=== PATIENT | female | born 1940 | race Hispanic/Latino ===

== ENCOUNTER 2021-09-01 16:37 | Emergency (ER) | payer MEDICARE, OTHER ==
[~2021-09-01] VITALS: Ht 152.4 cm; Wt 70.3 kg
[~2021-09-01 16:37] MED LIST: LEVO50TA6 PO; LISI10TA24 PO
[2021-09-01] MEDS ORDERED: MECLIZINE HCL 25 MG TABLET ONE (17:19)
[2021-09-01 17:27] LABS: APPEARANCE,URINE Cloudy (CLEAR); BILIRUBIN,URINE Negative (NEGATIVE); COLOR,URINE Dark Yellow (YELLOW); GLUCOSE, URINE (UA) Negative (NEGATIVE); KETONES,URINE Trace mg/dL (NEGATIVE); LEUKOCYTE ESTERASE ,URINE Small (NEGATIVE); NITRATE,URINE Negative (NEGATIVE); OCCULT BLOOD,URINE Negative (NEGATIVE); PROTEIN,URINE Trace mg/dL (NEGATIVE)
[2021-09-01 17:28] LABS: BASOPHILS % (AUTO) 0.4 % (0.0-5.0); EOSINOPHILS % (AUTO) 0.4 % (0.0-8.0); HEMATOCRIT 40.5 % (36-48); LYMPHOCYTES % (AUTO) 31.4 % (21.0-51.0); MEAN CORPUSCULAR HEMOGLOBIN 30.6 pg (27.0-33.0); MEAN CORPUSCULAR HGB CONC 32.8 g/dL (32.0-36.0); MEAN CORPUSCULAR VOLUME 93.1 fL (79-99); MONOCYTES % (AUTO) 11.8 % (3.0-13.0); NEUTROPHILS % (AUTO) 55.6 % (40.0-77.0); PLATELET COUNT (AUTO) 143 K/uL (130-400); RED BLOOD CELL COUNT(AUTO) 4.35 MIL/uL (4.00-5.50); RED CELL DISTRIBUTION WIDTH 12.6 % (11.0-15.5); WHITE BLOOD COUNT (AUTO) 2.6 K/uL (4.8-10.8)
[2021-09-01 17:31] VITALS: BP 143/76
[2021-09-01 17:41] LABS: BACTERIA,URINE Few /HPF (None Seen); SQUAMOUS EPITHELIAL CELL,UR Rare /HPF (0-2)
[2021-09-01 17:42] LABS: MUCUS,URINE Few LPF (None Seen)
[2021-09-01 17:46] LABS: CARBON DIOXIDE 27 mmol/L (21-32); CHLORIDE 106 mmol/L (101-111); GLOMERULAR FILTR. RATE CALC 57 mL/min (>60); GLUCOSE,RANDOM 90 mg/dL (70-105); POTASSIUM 3.6 mmol/L (3.5-5.1); SODIUM SERUM 142 mmol/L (136-145); UREA NITROGEN, BLOOD 16 mg/dL (7-18)
[2021-09-01 17:51] LABS: ALANINE AMINOTRANSFERASE 21 U/L (12-78); ALBUMIN 3.8 g/dL (3.5-5.0); ASPARTATE AMINOTRANSFERASE 18 U/L (10-37); BILIRUBIN,TOTAL 0.4 mg/dL (0.2-1.0); TOTAL PROTEIN, SERUM 6.9 g/dL (6.0-8.3)
[2021-09-01 17:52] LABS: CRP QUANTITATIVE < 2.00 mg/L (0.00-9.0)
[2021-09-01 18:03] LABS: B-TYPE NATRIURETIC PEPTIDE 66 pg/mL (0-100)
[2021-09-01] MEDS ORDERED: MECLIZINE HCL 25 MG TABLET PO ONE (18:06)
[2021-09-01 18:09] LABS: BAND NEUTROPHILS % (MANUAL) 2 % (0-2); LYMPHOCYTES % (MANUAL) 20 % (22-44); MAN.DIFF COMMENT-IMPRESSION MANUAL DIFFERENTIAL; MONOCYTES % (MANUAL) 10 % (2-9); REACTIVE LYMPHOCYTES 3 % (0-0); SEGMENTED NEUTROPHILS % 65 % (40-70)
[2021-09-01 18:10] LABS: PLATELET MORPHOLOGY COMMENT ADEQUATE
[2021-09-01] MEDS ORDERED: MECL-226 PO (19:19)
== END 2021-09-01 19:27 | disposition home or self-care (01) ==
LOC: EDH 16:37
DX: B34.9 Viral infection, unspecified (principal); R42 Dizziness and giddiness; D72.819 Decreased white blood cell count, unspecified; Z20.822 Contact with and (suspected) exposure to COVID-19; Z79.899 Other long term (current) drug therapy
CPT/HCPCS: 36415; 70450; 71045; 74176; 80053; 81001; 83880; 84484; 85025; 86140; 87635; 87804 ×2; 87880; 93005; 99285; C9803

== ENCOUNTER 2022-02-13 12:28 | Emergency (ER) | payer OTHER ==
[~2022-02-13] VITALS: Ht 165.1 cm; Wt 74.4 kg
[~2022-02-13 12:28] MED LIST changes: +MECL-226 PO
[2022-02-13 12:46] LABS: BASOPHILS % (AUTO) 0.3 % (0.0-5.0); EOSINOPHILS % (AUTO) 0.3 % (0.0-8.0); LYMPHOCYTES % (AUTO) 16.2 % (21.0-51.0); MEAN CORPUSCULAR HEMOGLOBIN 29.7 pg (27.0-33.0); MEAN CORPUSCULAR HGB CONC 32.6 g/dL (32.0-36.0); MEAN CORPUSCULAR VOLUME 91.3 fL (79-99); MONOCYTES % (AUTO) 2.4 % (3.0-13.0); NEUTROPHILS % (AUTO) 80.6 % (40.0-77.0); PLATELET COUNT (AUTO) 181 K/uL (130-400); RED BLOOD CELL COUNT(AUTO) 4.27 MIL/uL (4.00-5.50); RED CELL DISTRIBUTION WIDTH 12.8 % (11.0-15.5); WHITE BLOOD COUNT (AUTO) 5.7 K/uL (4.8-10.8)
[2022-02-13] MEDS ORDERED: PANTOPRAZOLE 40 MG/VIAL ONE (12:57)
[2022-02-13] MEDS ORDERED: PANTOPRAZOLE 40 MG/VIAL IVP SCH (13:00)
[2022-02-13 13:01] LABS: CREATININE 0.9 mg/dL (0.5-1.5); POTASSIUM 4.6 mmol/L (3.5-5.1)
[2022-02-13 13:06] LABS: ALBUMIN 4.1 g/dL (3.5-5.0); BILIRUBIN,TOTAL 0.8 mg/dL (0.2-1.0); TOTAL PROTEIN, SERUM 7.1 g/dL (6.0-8.3)
[2022-02-13] MEDS ORDERED: LIDOCAINE HCL 2% VISCOUS 15 ML UDCUP ONE (13:51)
[2022-02-13] MEDS ORDERED: MAG/ALUM/SIMETH 30 ML UDCUP ONE (13:51)
[2022-02-13] MEDS ORDERED: LIDOCAINE HCL 2% VISCOUS 15 ML UDCUP PO SCH (14:00)
[2022-02-13] MEDS ORDERED: MAG/ALUM/SIMETH 30 ML UDCUP PO ONE (14:00)
[2022-02-13] MEDS ORDERED: DICYCLOMINE HCL 10 MG/5 ML ML PO SCH (14:00)
[2022-02-13] MEDS ORDERED: FAMO20TA8 PO (14:05)
[2022-02-13 14:40] VITALS: BP 147/82
== END 2022-02-13 14:30 | disposition home or self-care (01) ==
LOC: EDH 12:28
DX: K29.70 Gastritis, unspecified, without bleeding (principal); Z79.899 Other long term (current) drug therapy
CPT/HCPCS: 36415; 71045; 80053; 84484; 85025; 93005; 96374; 99285; C9113

== ENCOUNTER 2023-05-15 11:09 | Observation (INO) | payer OTHER ==
[~2023-05-15] VITALS: Ht 157.5 cm; Wt 79.0 kg
[~2023-05-15 11:09] MED LIST changes: +FAMO20TA8 PO
[2023-05-15 11:37] LABS: EOSINOPHILS % (AUTO) 0.6 % (0.0-8.0); HEMATOCRIT 40.1 % (36-48); LYMPHOCYTES % (AUTO) 24.6 % (21.0-51.0); MEAN CORPUSCULAR HEMOGLOBIN 29.7 pg (27.0-33.0); MEAN CORPUSCULAR HGB CONC 32.4 g/dL (32.0-36.0); MEAN CORPUSCULAR VOLUME 91.6 fL (79-99); MONOCYTES % (AUTO) 7.2 % (3.0-13.0); NEUTROPHILS % (AUTO) 67.6 % (40.0-77.0); PLATELET COUNT (AUTO) 178 K/uL (130-400); RED BLOOD CELL COUNT(AUTO) 4.38 MIL/uL (4.00-5.50); RED CELL DISTRIBUTION WIDTH 12.9 % (11.0-15.5)
[2023-05-15 11:59] LABS: BILIRUBIN,DIRECT 0.2 mg/dL (0.0-0.3); CREATININE 0.8 mg/dL (0.5-1.5); POTASSIUM 4.1 mmol/L (3.5-5.1); TOTAL PROTEIN, SERUM 7.2 g/dL (6.0-8.3)
[2023-05-15] MEDS ORDERED: LOSA1TAB37 PO (12:21)
[2023-05-15] MEDS ORDERED: GABA-529 PO (12:21)
[2023-05-15] MEDS ORDERED: DONE5TAB5 PO (12:21)
[2023-05-15] MEDS ORDERED: NAPR-1023 PO (12:21)
[2023-05-15] MEDS ORDERED: DICL25TA11 PO (12:21)
[2023-05-15] MEDS ORDERED: PRED20TA3 PO (12:21)
[2023-05-15] MEDS ORDERED: ACET-2079 PO (12:21)
[2023-05-15] MEDS ORDERED: NITROGLYCERIN 0.4 MG SL TAB SL PRN (12:30)
[2023-05-15] MEDS ORDERED: LACTULOSE 20 GM/30 ML UDCUP PO PRN (12:30)
[2023-05-15] MEDS ORDERED: DIPHENHYDRAMINE HCL 25 MG CAPSULE PO PRN (12:30)
[2023-05-15] MEDS ORDERED: ONDANSETRON 4MG INJ IVP PRN (12:30)
[2023-05-15] MEDS ORDERED: GUAIFENESIN-DM 200/20 MG 10 ML PO PRN (12:30)
[2023-05-15] MEDS ORDERED: ZOLPIDEM TARTRATE 5 MG TAB PO PRN (12:30)
[2023-05-15] MEDS: ACETAMINOPHEN 325 MG TAB PO PRN ×2 (14:01→18:19)
[2023-05-15] MEDS ORDERED: ENOXAPARIN SODIUM 80 MG/0.8 ML SQ ONE (21:00)
[2023-05-16] MEDS ORDERED: REGADENOSON 0.4 MG/5 ML PF SYG IVP SCH (07:00)
[2023-05-16] MEDS: CLOPIDOGREL 75MG TAB PO SCH (09:14)
[2023-05-16] MEDS: ASPIRIN 325MG TAB PO SCH (09:15)
[2023-05-16 10:10] VITALS: BP 151/109
[2023-05-16 11:30] VITALS: BP 164/80
[2023-05-16 12:04] LABS: HEMATOCRIT 38.1 % (36-48); MEAN CORPUSCULAR HEMOGLOBIN 30.1 pg (27.0-33.0); MEAN CORPUSCULAR HGB CONC 32.5 g/dL (32.0-36.0); MEAN CORPUSCULAR VOLUME 92.5 fL (79-99); RED BLOOD CELL COUNT(AUTO) 4.12 MIL/uL (4.00-5.50); RED CELL DISTRIBUTION WIDTH 12.8 % (11.0-15.5); WHITE BLOOD COUNT (AUTO) 3.6 K/uL (4.8-10.8)
[2023-05-16 12:18] LABS: CREATININE 0.8 mg/dL (0.5-1.5); POTASSIUM 4.3 mmol/L (3.5-5.1)
[2023-05-16 16:40] VITALS: BP 143/79
[2023-05-16 20:00] VITALS: BP 117/55
[2023-05-17] VITALS: BP 135/73
[2023-05-17 04:00] VITALS: BP 127/68
[2023-05-17 08:50] VITALS: BP 157/87
[2023-05-17] MEDS: CLOPIDOGREL 75MG TAB PO SCH (09:56)
[2023-05-17] MEDS: ASPIRIN 325MG TAB PO SCH (09:57)
[2023-05-17 12:00] VITALS: BP 148/94
== END 2023-05-17 11:40 | disposition home or self-care (01) ==
LOC: EDH 11:09 → DIRECT 11:10 → 3BH 05-16 10:02
PROVIDERS: ADMIT Internal Medicine; ATTEND Internal Medicine
DX: I24.9 Acute ischemic heart disease, unspecified (principal); R07.89 Other chest pain; I10 Essential (primary) hypertension; I25.10 Atherosclerotic heart disease of native coronary artery without angina pectoris; E78.5 Hyperlipidemia, unspecified; E03.9 Hypothyroidism, unspecified; Z87.891 Personal history of nicotine dependence; Z79.899 Other long term (current) drug therapy; Z98.890 Other specified postprocedural states
CPT/HCPCS: 96372; 82248; 82550 ×3; 83874 ×3; 84484 ×3; 80053; 85025; 36415 ×2; 93005; 80048; 85027; 82948; 93017; 78452; G0378 ×46; J1650; J2785 ×2; A9500 ×2; 96374

== ENCOUNTER 2023-10-17 05:16 | Observation (INO) | payer OTHER ==
[2023-10-16 12:06] VITALS: BP 186/90; PULSE 57; RESP 18
[2023-10-17] VITALS (26 sets, daily range): BP systolic 114–157; BP diastolic 63–87; PULSE 58–81; RESP 14–19; O2SAT 98
[~2023-10-17] VITALS: Ht 160 cm; Wt 85.9 kg
[2023-10-17] MEDS ORDERED: LACTATED RINGERS 1000ML 1,000 ML IV ONE (05:30)
[2023-10-17] MEDS ORDERED: CEFAZOLIN SODIUM 2 GM VIAL ONE (05:30)
[2023-10-17] MEDS ORDERED: 0.9%NACL 100ML 48.45 ML, ROPIVACAINE 0.5% 5MG/ML 30ML 246.25 MG, KETOROLAC TROMETHAMINE... IV PRN ×5 (06:00)
[2023-10-17] MEDS ORDERED: LIDOCAINE PF 100MG/5ML (2%) SYRINGE 5ML ONE (06:57)
[2023-10-17] MEDS ORDERED: SUCCINYLCHOLINE CHLORIDE 20 MG/ML 10 ML VIAL ONE (06:57)
[2023-10-17] MEDS ORDERED: ROCURONIUM 10MG/1ML SYR 10 MG/ML ML ONE (06:58)
[2023-10-17] MEDS ORDERED: GLYCOPYRROLATE 1 MG/5 ML SYRINGE ONE (06:58)
[2023-10-17] MEDS ORDERED: DEXAMETHASONE SOD PHOSPHATE 10MG/ML 1ML VIAL ONE (06:58)
[2023-10-17] MEDS ORDERED: NEOSTIGMINE 5MG/5ML SYR IV ONE (06:58)
[2023-10-17] MEDS ORDERED: PROPOFOL 10 MG/ML 20ML VIAL IV ONE (06:58)
[2023-10-17] MEDS ORDERED: MIDAZOLAM HCL 1 MG/ML 2ML VIAL ONE ×2 (06:58→09:25)
[2023-10-17] MEDS ORDERED: ONDANSETRON 4MG INJ ONE (06:58)
[2023-10-17] MEDS ORDERED: FENTANYL CITRATE PF 50 MCG/1 ML 2ML VIAL ONE ×2 (06:59→08:26)
[2023-10-17] MEDS ORDERED: CEFAZOLIN SODIUM 1 GM VIAL ONE (07:00)
[2023-10-17] MEDS ORDERED: TRANEXAMIC ACID 1000MG/10ML ONE (07:00)
[2023-10-17] MEDS ORDERED: GENTAMICIN SULFATE 80 MG/2 ML VIAL ONE (07:00)
[2023-10-17] MEDS ORDERED: DiphenhydrAMINE HCL 50 MG/ML VIAL IM PRN (12:00)
[2023-10-17] MEDS ORDERED: DIPHENHYDRAMINE HCL 25 MG CAPSULE PO PRN ×2 (12:00)
[2023-10-17] MEDS ORDERED: LACTULOSE 20 GM/30 ML UDCUP PO PRN (12:00)
[2023-10-17] MEDS ORDERED: DIPHENOXYLATE HCL/ATROPINE 2.5/0.025 MG TAB PO PRN (12:00)
[2023-10-17] MEDS ORDERED: ACETAMINOPHEN 325 MG TAB PO PRN ×3 (12:00)
[2023-10-17] MEDS ORDERED: HYDROMORPHONE PCA 10 MG/50 ML 50 ML IV PRN (12:00)
[2023-10-17] MEDS ORDERED: MAG/ALUM/SIMETH 30 ML UDCUP PO PRN (12:00)
[2023-10-17] MEDS ORDERED: BENZOCAINE/MENTH/CETYLPYRD CL 1 EACH LOZENGE MM PRN (12:00)
[2023-10-17] MEDS: 0.9%NACL 1000ML 1,000 ML IV SCH ×2 (12:35→23:58)
[2023-10-17] MEDS: CEFAZOLIN SODIUM 2 GM VIAL IVPB SCH (16:37)
[2023-10-18] VITALS (8 sets, daily range): BP systolic 107–128; BP diastolic 57–69; PULSE 55–68; RESP 18–19; O2SAT 91–96
[2023-10-18] MEDS: CEFAZOLIN SODIUM 2 GM VIAL IVPB SCH (00:55)
[2023-10-18 03:07] LABS: HEMATOCRIT 31.8 % (36-48); MEAN CORPUSCULAR HEMOGLOBIN 29.7 pg (27.0-33.0); MEAN CORPUSCULAR HGB CONC 32.4 g/dL (32.0-36.0); MEAN CORPUSCULAR VOLUME 91.6 fL (79-99); RED BLOOD CELL COUNT(AUTO) 3.47 MIL/uL (4.00-5.50); RED CELL DISTRIBUTION WIDTH 12.6 % (11.0-15.5); WHITE BLOOD COUNT (AUTO) 6.8 K/uL (4.8-10.8)
[2023-10-18 03:25] LABS: CREATININE 0.9 mg/dL (0.5-1.5); POTASSIUM 4.2 mmol/L (3.5-5.1)
[2023-10-18 03:26] LABS: INR 0.94 (0.85-1.15); PROTHROMBIN TIME 10.9 SEC (9.6-11.6)
[2023-10-18 03:27] LABS: PARTIAL THROMBOPLASTIN TIME 28.4 SEC (26.3-35.5)
[2023-10-18] MEDS: ONDANSETRON 4MG INJ IVP PRN (05:55)
[2023-10-18] MEDS: RIVAROXABAN 10 MG TABLET PO SCH (09:36)
[2023-10-18] MEDS: 0.9%NACL 1000ML 1,000 ML IV SCH ×2 (09:37→18:00)
[2023-10-18] MEDS ORDERED: MAGNESIUM 2GM PREMIX 50ML 50 ML IV PRN (13:00)
[2023-10-18] MEDS: TRAMADOL HCL 50 MG TABLET PO PRN (16:01)
[2023-10-19 03:27] LABS: BASOPHILS # (AUTO) 0.01 K/uL (0.00-0.20); BASOPHILS % (AUTO) 0.2 % (0.0-5.0); EOSINOPHILS # (AUTO) 0.01 K/uL (0.00-0.70); EOSINOPHILS % (AUTO) 0.2 % (0.0-8.0); HEMATOCRIT 28.2 % (36-48); IMMATURE GRANULOCYTE ABSOLUTE 0.03 K/uL (0-1); LYMPHOCYTES # (AUTO) 0.7 K/uL (1.0-4.8); LYMPHOCYTES % (AUTO) 12.6 % (21.0-51.0); MEAN CORPUSCULAR HEMOGLOBIN 30.2 pg (27.0-33.0); MEAN CORPUSCULAR HGB CONC 31.9 g/dL (32.0-36.0); MEAN CORPUSCULAR VOLUME 94.6 fL (79-99); MONOCYTES # (AUTO) 0.5 K/uL (0.1-1.0); MONOCYTES % (AUTO) 8.9 % (3.0-13.0); NEUTROPHILS # (AUTO) 4.2 K/uL (1.8-7.7); NEUTROPHILS % (AUTO) 77.5 % (40.0-77.0); PLATELET COUNT (AUTO) 134 K/uL (130-400); RED BLOOD CELL COUNT(AUTO) 2.98 MIL/uL (4.00-5.50); RED CELL DISTRIBUTION WIDTH 12.7 % (11.0-15.5); WHITE BLOOD COUNT (AUTO) 5.4 K/uL (4.8-10.8)
[2023-10-19 03:43] LABS: ALBUMIN 2.8 g/dL (3.5-5.0); BILIRUBIN,TOTAL 0.6 mg/dL (0.2-1.0); CREATININE 0.8 mg/dL (0.5-1.5); POTASSIUM 4.1 mmol/L (3.5-5.1); TOTAL PROTEIN, SERUM 5.5 g/dL (6.0-8.3)
[2023-10-19 03:59] VITALS: BP 117/63; PULSE 75; RESP 18
[2023-10-19] MEDS: 0.9%NACL 1000ML 1,000 ML IV SCH ×3 (04:00→23:30)
[2023-10-19] MEDS: TRAMADOL HCL 50 MG TABLET PO PRN ×3 (06:09→19:57)
[2023-10-19] MEDS: ONDANSETRON 4MG INJ IVP PRN (06:34)
[2023-10-19 08:00] VITALS: BP 113/60; PULSE 74; RESP 16; O2SAT 91
[2023-10-19] MEDS: RIVAROXABAN 10 MG TABLET PO SCH (09:22)
[2023-10-19 11:55] VITALS: BP 110/64; PULSE 76; RESP 20
[2023-10-19 16:00] VITALS: BP 118/64; PULSE 78; RESP 19
[2023-10-19 19:50] VITALS: O2SAT 96
[2023-10-19 20:00] VITALS: BP 124/62; PULSE 69; RESP 17
[2023-10-20] VITALS: BP 116/70; PULSE 71; RESP 17
[2023-10-20 03:24] LABS: HEMATOCRIT 26.2 % (36-48); MEAN CORPUSCULAR HEMOGLOBIN 30.4 pg (27.0-33.0); MEAN CORPUSCULAR HGB CONC 32.1 g/dL (32.0-36.0); MEAN CORPUSCULAR VOLUME 94.9 fL (79-99); RED BLOOD CELL COUNT(AUTO) 2.76 MIL/uL (4.00-5.50); RED CELL DISTRIBUTION WIDTH 12.8 % (11.0-15.5); WHITE BLOOD COUNT (AUTO) 4.5 K/uL (4.8-10.8)
[2023-10-20 03:33] LABS: POTASSIUM 3.9 mmol/L (3.5-5.1)
[2023-10-20 04:00] VITALS: BP 112/67; PULSE 75; RESP 17
[2023-10-20] MEDS: TRAMADOL HCL 50 MG TABLET PO PRN ×2 (06:12→13:12)
[2023-10-20 08:00] VITALS: BP 112/61; PULSE 72; RESP 16
[2023-10-20] MEDS: RIVAROXABAN 10 MG TABLET PO SCH (09:13)
[2023-10-20 09:25] VITALS: O2SAT 100
[2023-10-20 11:47] VITALS: BP 108/60; PULSE 82; RESP 17
== END 2023-10-20 14:35 | disposition home or self-care (01) ==
LOC: DAH 05:16 → DAHIP 05:17 → 4BH 11:28
PROVIDERS: ADMIT Orthopaedic Surgery; ATTEND Orthopaedic Surgery
DX: M17.11 Unilateral primary osteoarthritis, right knee (principal); D64.9 Anemia, unspecified; I25.10 Atherosclerotic heart disease of native coronary artery without angina pectoris; E03.9 Hypothyroidism, unspecified; E78.5 Hyperlipidemia, unspecified; I10 Essential (primary) hypertension; Z87.891 Personal history of nicotine dependence; Z96.651 Presence of right artificial knee joint; Z79.01 Long term (current) use of anticoagulants; Z79.899 Other long term (current) drug therapy
CPT/HCPCS: 93005 ×2; 87641; 27447; 96365; 96366 ×4; 96368; 97161; 97012; 97116 ×7; 96375; 96367; 80048 ×2; 85027 ×2; 85610; 85730; 36415 ×3; 97530 ×13; 96376; 83735; 80053; 85025; G0378 ×69; A4510; A4663; J7030 ×2; A4215 ×2; A4649 ×4; J7120; J3010 ×2; J0690 ×4; J3490 ×2; J1170; J1100; J2710; J0330; J2001; J1580; J2250 ×2; J2704; J2405 ×3; A6223; C1763 ×2; C1776; A5120; A4223; A4222; A4221; A6450; J3475

== ENCOUNTER 2023-10-29 15:08 | Emergency (ER) | payer OTHER ==
[2023-10-29 16:44] LABS: BASOPHILS # (AUTO) 0.02 K/uL (0.00-0.20); BASOPHILS % (AUTO) 0.4 % (0.0-5.0); EOSINOPHILS # (AUTO) 0.05 K/uL (0.00-0.70); EOSINOPHILS % (AUTO) 1.1 % (0.0-8.0); HEMATOCRIT 34.2 % (36-48); IMMATURE GRANULOCYTE ABSOLUTE 0.03 K/uL (0-1); LYMPHOCYTES # (AUTO) 0.9 K/uL (1.0-4.8); LYMPHOCYTES % (AUTO) 19.5 % (21.0-51.0); MEAN CORPUSCULAR HEMOGLOBIN 29.8 pg (27.0-33.0); MEAN CORPUSCULAR HGB CONC 31.9 g/dL (32.0-36.0); MEAN CORPUSCULAR VOLUME 93.4 fL (79-99); MONOCYTES # (AUTO) 0.5 K/uL (0.1-1.0); MONOCYTES % (AUTO) 9.9 % (3.0-13.0); NEUTROPHILS # (AUTO) 3.3 K/uL (1.8-7.7); NEUTROPHILS % (AUTO) 68.5 % (40.0-77.0); PLATELET COUNT (AUTO) 355 K/uL (130-400); RED BLOOD CELL COUNT(AUTO) 3.66 MIL/uL (4.00-5.50); RED CELL DISTRIBUTION WIDTH 13.7 % (11.0-15.5); WHITE BLOOD COUNT (AUTO) 4.8 K/uL (4.8-10.8)
[2023-10-29 16:53] LABS: CREATININE 0.8 mg/dL (0.5-1.5); POTASSIUM 3.5 mmol/L (3.5-5.1)
[2023-10-29 16:54] LABS: INR < 0.93 (0.85-1.15); PROTHROMBIN TIME 10.8 SEC (9.6-11.6)
[2023-10-29 16:55] LABS: PARTIAL THROMBOPLASTIN TIME 27.8 SEC (26.3-35.5)
[2023-10-29 16:58] LABS: ALBUMIN 3.7 g/dL (3.5-5.0); TOTAL PROTEIN, SERUM 7.1 g/dL (6.0-8.3)
[2023-10-29] MEDS ORDERED: ACETAMINOPHEN 500 MG TABLET PO ONE (17:00)
[2023-10-29] MEDS ORDERED: KETOROLAC 30MG VIAL (30MG/ML) IVP ONE (19:00)
[2023-10-29] MEDS ORDERED: IOHEXOL-350 75 ML VIAL IV ONE (19:09)
[2023-10-29] MEDS ORDERED: IBUP-1493 PO (20:58)
[2023-10-29 21:29] VITALS: BP 136/68; PULSE 65; RESP 16; O2SAT 99
== END 2023-10-29 21:30 | disposition home or self-care (01) ==
LOC: EDH 15:08
DX: M54.50 Low back pain, unspecified (principal); R42 Dizziness and giddiness; R06.02 Shortness of breath; I10 Essential (primary) hypertension; E78.00 Pure hypercholesterolemia, unspecified; E03.9 Hypothyroidism, unspecified; Z98.890 Other specified postprocedural states; Z88.5 Allergy status to narcotic agent
CPT/HCPCS: 99285; 74177; 96374; 71045; 84484; 80053; 85025; 85610; 85730; 36415; 71100; 93005; J1885; Q9967

== ENCOUNTER 2024-07-01 02:37 | Emergency (ER) | payer OTHER ==
[~2024-07-01] VITALS: Ht 154.9 cm; Wt 70.3 kg
[~2024-07-01 02:37] MED LIST changes: -FAMO20TA8 PO; +IBUP-1493 PO; -LEVO50TA6 PO; -LISI10TA24 PO; -MECL-226 PO
[2024-07-01 03:33] LABS: BASOPHILS # (AUTO) 0.03 K/uL (0.00-0.20); BASOPHILS % (AUTO) 0.8 % (0.0-5.0); EOSINOPHILS # (AUTO) 0.06 K/uL (0.00-0.70); EOSINOPHILS % (AUTO) 1.6 % (0.0-8.0); HEMATOCRIT 36.1 % (36-48); IMMATURE GRANULOCYTE ABSOLUTE 0.01 K/uL (0-1); LYMPHOCYTES # (AUTO) 1.3 K/uL (1.0-4.8); LYMPHOCYTES % (AUTO) 33.5 % (21.0-51.0); MEAN CORPUSCULAR HEMOGLOBIN 29.7 pg (27.0-33.0); MEAN CORPUSCULAR HGB CONC 33.5 g/dL (32.0-36.0); MEAN CORPUSCULAR VOLUME 88.5 fL (79-99); MONOCYTES # (AUTO) 0.3 K/uL (0.1-1.0); MONOCYTES % (AUTO) 7.7 % (3.0-13.0); NEUTROPHILS # (AUTO) 2.1 K/uL (1.8-7.7); NEUTROPHILS % (AUTO) 56.1 % (40.0-77.0); PLATELET COUNT (AUTO) 167 K/uL (130-400); RED BLOOD CELL COUNT(AUTO) 4.08 MIL/uL (4.00-5.50); RED CELL DISTRIBUTION WIDTH 12.7 % (11.0-15.5); WHITE BLOOD COUNT (AUTO) 3.8 K/uL (4.8-10.8)
[2024-07-01 03:53] LABS: ALBUMIN 3.6 g/dL (3.5-5.0); BILIRUBIN,TOTAL 0.6 mg/dL (0.2-1.0); TOTAL PROTEIN, SERUM 6.7 g/dL (6.0-8.3)
[2024-07-01] MEDS: POTASSIUM CHLORIDE 20MEQ/10ML 10 MEQ in 0.9%NACL 50ML 50 ML IV SCH (05:35)
[2024-07-01] MEDS: POTASSIUM CHLORIDE 20MEQ/100ML 100 ML IV ONE (05:35)
[2024-07-01] MEDS: DICYCLOMINE HCL 10 MG/5 ML ML PO ONE (05:36)
[2024-07-01] MEDS: LIDOCAINE HCL 2% VISCOUS 15 ML UDCUP PO ONE (05:36)
[2024-07-01] MEDS: MAG/ALUM/SIMETH 30 ML UDCUP PO ONE (05:36)
[2024-07-01] MEDS: POTASSIUM BICARB/CIT AC 25 MEQ TABLET.EFF PO ONE (05:41)
[2024-07-01] MEDS: FAMOTIDINE 20MG TAB PO ONE (05:41)
[2024-07-01 07:50] VITALS: BP 157/81; PULSE 53; RESP 17; O2SAT 98
== END 2024-07-01 08:31 | disposition home or self-care (01) ==
LOC: EDH 02:37
DX: R07.89 Other chest pain (principal); E03.9 Hypothyroidism, unspecified; E78.00 Pure hypercholesterolemia, unspecified; I10 Essential (primary) hypertension; I25.10 Atherosclerotic heart disease of native coronary artery without angina pectoris; D72.819 Decreased white blood cell count, unspecified; F17.200 Nicotine dependence, unspecified, uncomplicated; Z79.899 Other long term (current) drug therapy; Z88.5 Allergy status to narcotic agent; Z90.49 Acquired absence of other specified parts of digestive tract; Z96.651 Presence of right artificial knee joint
CPT/HCPCS: 36415; 71045; 80053; 83690; 84484; 85025; 93005; J3480

== ENCOUNTER 2025-01-08 03:22 | Emergency (ER) | payer OTHER ==
[~2025-01-08] VITALS: Ht 157.5 cm; Wt 68.0 kg
[2025-01-08 03:23] VITALS: TEMP 97.8
--- NOTE | 2025-01-08 03:39 | ERN ---
ED Note History of Present Illness Stated Complaint: CHEST PAIN Chief Complaint: Chest Pain Time Seen by MD: 03:28 Dictation: This is an 84-year-old female who came in with her to the emergency room complaining of chest discomfort. This is in the epigastric area for a long t tye. She has had similar presentation multiple times in the past and extensive workup for cardiac etiology has been negative. No diaphoresis no loss of consciousness. No nausea vomitings Temperature 97.8 pulse 55 respirations 16 blood pressure 166/84 with a pulse oximetry of 98% on room air Coronary artery disease, hypertension, hypercholesterolemia Allergies: Coded Allergies: No Known Allergies (Verified Allergy, Unknown, 05/15/23) codeine (Unverified Allergy, Unknown, 05/15/23) Home Meds Active Scripts Omeprazole (Omeprazole) 40 Mg Capsule.dr, 1 CAP PO DAILY for 30 Days, #30 CAP 0 Refills Prov:SHAVON WOODARD MD 01/08/25 Ibuprofen (Motrin/Advil) 800 Mg Tab, 800 MG PO TID, #30 TAB Prov:COOKIE PRIEST MD 10/29/23 Past Medical History Past Medical History: CAD, High Cholesterol, Hypertension Surgical History: Cholecystectomy Surgical History Other: TOTAL RT KNEE REPLACEMENT Family History: Negative Social History: Smokers History: Not Applicable RN Note Reviewed/Agreed w/PFSH: Yes Review of System Dictation Constitutional: Negative for fever,chills, and weight loss Eyes: Negative for injury, pain,redness, and discharge ENT: Negative for injury,pain or swelling Cardiovascular: Negative for chest pain, palpitations, and edema Respiratory: Negative for shortness of breath, cough, and wheezing, Abdomen/GI: Negative for abdominal pain, nausea, vomiting, diarrhea, and constipation Back: Negative for injury and pain : Negative for injury, bleeding and discharge MS/Extremity: Negative for injury and deformity Skin: Negative for rash, and discoloration Neuro: Negative for headache, weakness, numbness, tingling, and seizure Psych: Negative for suicide ideation, homicidal ideation, and hallucinations Initial Vital Sign VS Vital Signs Date Time Temp Pulse Resp B/P (MAP) Pulse Ox O2 Delivery O2 Flow Rate FiO2 01/08/25 03:23 97.9 55 16 166/84 98 Room Air 01/08/25 03:35 0 21 Physical Exam Dictation General: awake, alert, NAD Head/Face: Normocephalic, atraumatic Eyes: PERRL, EOMI, vision at baseline ENT: oral cavity clear, TMs clear, no signs of infection Neck: Trachea midline, supple, no nuchal rigidity Cardiovascular: RRR, normal S1/S2, No MRGs, no JVD Respiratory: CTAB, no respiratory distress, No rales or wheezes Abdomen: Soft, non-distended, normal bowel sounds, no guarding or rebound. Tenderness in the epigastric area Skin: Warm, dry, normal turgor, no rash MS/Extremity: Pulses equal, no cyanosis, neurovascular intact, FROM Neuro: COAx4, GCS 15, strength 5/5, CN 2-12 intact, normal cerebellar exam, normal gait, Psych: Normal behavior, mood, and affect normal Extremities-trace edema without any palpable cords, Homans sign is negative Results (Laboratory/Radiology) Laboratory/Radiology Laboratory Tests Test 01/08/25 03:33 01/08/25 04:00 White Blood Count 4.0 K/uL (4.8-10.8) L Red Blood Count 4.14 MIL/uL (4.00-5.50) Hemoglobin 12.6 g/dL (12.0-16.0) Hematocrit 37.7 % (36-48) Mean Corpuscular Volume 91.1 fL (79-99) Mean Corpuscular Hemoglobin 30.4 pg (27.0-33.0) Mean Corpuscular Hemoglobin Concent 33.4 g/dL (32.0-36.0) Red Cell Distribution Width 12.6 % (11.0-15.5) Platelet Count 162 K/uL (130-400) Mean Platelet Volume 10.1 fL (7.5-10.5) Immature Granulocyte % (Auto) 0.3 % (0-1) Neutrophils (%) (Auto) 46.0 % (40.0-77.0) Lymphocytes (%) (Auto) 42.1 % (21.0-51.0) Monocytes (%) (Auto) 9.3 % (3.0-13.0) Eosinophils (%) (Auto) 1.8 % (0.0-8.0) Basophils (%) (Auto) 0.5 % (0.0-5.0) Neutrophils # (Auto) 1.8 K/uL (1.8-7.7) Lymphocytes # (Auto) 1.7 K/uL (1.0-4.8) Monocytes # (Auto) 0.4 K/uL (0.1-1.0) Eosinophils # (Auto) 0.07 K/uL (0.00-0.70) Basophils # (Auto) 0.02 K/uL (0.00-0.20) Absolute Immature Granulocyte (auto 0.01 K/uL (0-1) Nucleated Red Blood Cells 0.0 % (0.0-0.19) Sodium Level 142 mmol/L (136-145) Potassium Level 4.9 mmol/L (3.5-5.1) Chloride Level 107 mmol/L (101-111) Carbon Dioxide Level 30 mmol/L (21-32) Blood Urea Nitrogen 12 mg/dL (7-18) Creatinine 0.8 mg/dL (0.5-1.0) Glomerular Filtration Rate Calc 74 mL/min (>90) Random Glucose 87 mg/dL (70-105) Total Calcium 9.4 mg/dL (8.5-10.1) Total Creatine Kinase 120 U/L (21-232) # Troponin I High Sensitivity 10 ng/L (4-50) B-Type Natriuretic Peptide 164 pg/mL (0-100) H Troponin I < 0.05 ng/mL (0.00-0.05) Labs Reviewed?: Yes EKG Comment: 12 lead EKG done on 01/08/2025 at 3:28 a.m. showed a heart rate of 57, TN interval 240, QRS 95, QT/QTC 446/437 Impression normal sinus rhythm with first-degree AV block nonspecific ST-T changes throughout with no acute ST elevation or deep ST depression noted. Interpreted by ER MD Dr. Woodard Ultrasound Comment: Lexiscan stress test IMPRESSION Normal pharmacologic nuclear stress test. Global LV Function: Normal Stress ECG Summary: Normal LV Perfusion Summary: Normal Conclusion Normal pharmacologic nuclear stress test. Global LV Function: Normal Stress ECG Summary: Normal LV Perfusion Summary: Normal DICTATED BY: RAD SCALES MD DATE: 05/16/23 0782 ELECTRONICALLY SIGNED BY: RAD SCALES MD DATE: 05/16/23 8641 ED Course ED Course Orders Procedure Category Date Status Time B-Type Natriuretic LAB 01/08/25 Complete Peptide 03:27 Chest 1vw RAD 01/08/25 Taken 03:27 12 Lead Ekg Tracing- EKG 01/08/25 Logged Technical 03:27 Oxygen By Nc/Pulse Ox CPOE 01/08/25 Transmitted 03:27 Maintain Iv CPOE 01/08/25 Transmitted 03:27 Iv Insertion CPOE 01/08/25 Transmitted 03:27 Cardiac Monitoring CPOE 01/08/25 Transmitted 03:27 Pulse Oximetry With CPOE 01/08/25 Transmitted Vs And Prn 03:27 Cbc With Differential LAB 01/08/25 Complete 03:27 Activity: Br W/Brp CPOE 01/08/25 Transmitted With Assist 03:27 Creatine Kinase, Total LAB 01/08/25 Complete 03:27 Troponin I High LAB 01/08/25 Complete Sensitivity 03:27 Urinalysis Profile LAB 01/08/25 Logged 03:27 Troponin Poc Order LAB 01/08/25 Complete Only 03:27 Bedside Troponin-I LAB.ER 01/08/25 In Process (Poc) 03:27 Basic Metabolic Panel LAB 01/08/25 Complete 03:27 Vital Signs Per CPOE 01/08/25 Transmitted Routine 03:27 Hydromorphone 0.5mg PHA 01/08/25 Complete Syg (Dilaudid 0.5mg 04:00 Ondansetron 4mg Inj PHA 01/08/25 Complete (Zofran 4mg Inj) 04:00 Hyoscyamine Sulfate PHA 01/08/25 Complete (Levsin) 04:00 Hydromorphone 0.5mg PHA 01/08/25 In Process Syg (Dilaudid 0.5mg 06:00 Current Medications Medications (Trade) Dose Ordered Sig/Kelsy Route PRN Reason Start Time Stop Time Status Last Admin Dose Admin Hydromorphone HCl (DiLAUDid 0.5MG INJ) 0.2 mg ONCE ONCE IVP 01/08/25 06:00 01/08/25 06:01 01/08/25 05:45 Hydromorphone HCl (DiLAUDid 0.5MG INJ) 0.5 mg ONCE ONCE IVP 01/08/25 04:00 01/08/25 04:03 DC 01/08/25 04:11 Hyoscyamine Sulfate (Levsin) 0.125 mg ONCE ONCE SL 01/08/25 04:00 01/08/25 04:02 DC 01/08/25 04:12 Ondansetron HCl (zoFRAN 4MG INJ) 4 mg ONCE ONCE IVP 01/08/25 04:00 01/08/25 04:02 DC 01/08/25 04:12 Vital Signs Date Time Temp Pulse Resp B/P (MAP) Pulse Ox O2 Delivery O2 Flow Rate FiO2 01/08/25 04:57 53 16 152/74 99 Room Air* 0 21 01/08/25 03:35 53 16 162/84 99 Room Air* 0 21 01/08/25 03:23 97.9 55 16 166/84 98 Room Air We will perform diagnostic labs, advanced imaging and administer medications according to the patient's complaint. Once the results are available, will review and personally interpreted the labs to rule out any acute life- threatening emergency the trach require immediate intervention and treatment. I will then re-evaluate the patient after treatment and diagnostic exams have return to determine whether the patient requires any further testing, can safely be discharged home or need further admission to hospital for additional treatment and evaluation. Labs reviewed CBC BNP 7 with a normal limits troponins are negative brain natriuretic peptide is 164 Chest x-ray showed mild cardiomegaly which is chronic no acute infiltrate. I reviewed CT scan of the chest and abdomen done before which definitely shows hiatal hernia. I had a long discussion with the patient and family and updated them on available labs in the possibility of the pain being related to hiatal hernia and they verbalized full understanding I have educated her on GERD precautions. Medical Decision Making MDM MDM: Differential diagnosis: Atypical chest pain with reproducible tenderness in the epigastric area-esophagitis, gastroesophageal reflux, hiatal hernia Rationale: Tests considered and ordered secondary to shared decision making include: Previous outside records reviewed: Old ER visits. Risk of complication and/or morbidity or mortality of patient management: None Medications-Per medication reconciliation Need for hospitalization: Patient does not meet criteria for hospitalization. Need for emergency major/minor surgery: No There are no social concerns with this patient. Prescription drug management Prescriptions will include symptomatic care Patient's prior external medical records from other ER visits were reviewed by me as indicated. Prior testing and results from previous visits were reviewed. Prior tests were taken into account with medical decision making and resource utilization, independent historian/historians were used to obtain complete medical history. I independently interpreted the test that were performed, results were reviewed by me and considered findings on radiology if ordered. Medical management and examination interpretation discussions were had by me with other qualified healthcare professionals as indicated for the patient's care. Problem List Problem List: (1) Uncontrolled hypertension (2) Chest pain (3) Coronary artery disease (4) Hypothyroid DX & DISP Disposition: Discharge Departure Impression: Primary Impression: Chest pain Additional Impressions: Hiatal hernia, Gastroesophageal reflux Condition: Stable Scripts Omeprazole (Omeprazole) 40 Mg Capsule.dr 1 CAP PO DAILY for 30 Days, #30 CAP 0 Refills Prov: SHAVON WOODARD MD 01/08/25 Additional Instructions: Patient and the caregiver have been informed of all the diagnostic tests and the imaging conducted during the today's visit to the emergency room and has verbalized understanding of the results I have personally reviewed and interpreted all diagnostic exams performed here in the ER today as well as the vital signs documented by the nursing staff. The patient is now being discharged to home and should follow up with the primary care physician or the specialist as directed by the ER staff. Follow-up with primary care provider in 1 to 2 days. Take medications as directed here in the emergency room. Okay to continue home medications unless otherwise discussed during your visit in the emergency room today. Return to your nearest emergency room if symptoms worsen or if there is no improvement. Call 911 if you need immediate assistance. Take Tylenol or Motrin over-the- counter as needed and if no contraindications are present. Increase oral hydration. A wound culture or urine culture was ordered here in the emergency room department please follow-up with primary care provider and advise them to get repeat ports from our facility. If you had any Dandy wrap/splints that were applied here, please do not remove them until you see your primary care or specialty. Referrals: OMID BLANCO MD (PCP) SHAVON WOODARD MD Jan 08, 2025 03:39
[2025-01-08 03:43] LABS: BASOPHILS # (AUTO) 0.02 K/uL (0.00-0.20); BASOPHILS % (AUTO) 0.5 % (0.0-5.0); EOSINOPHILS # (AUTO) 0.07 K/uL (0.00-0.70); EOSINOPHILS % (AUTO) 1.8 % (0.0-8.0); HEMATOCRIT 37.7 % (36-48); IMMATURE GRANULOCYTE ABSOLUTE 0.01 K/uL (0-1); LYMPHOCYTES # (AUTO) 1.7 K/uL (1.0-4.8); LYMPHOCYTES % (AUTO) 42.1 % (21.0-51.0); MEAN CORPUSCULAR HEMOGLOBIN 30.4 pg (27.0-33.0); MEAN CORPUSCULAR HGB CONC 33.4 g/dL (32.0-36.0); MEAN CORPUSCULAR VOLUME 91.1 fL (79-99); MONOCYTES # (AUTO) 0.4 K/uL (0.1-1.0); MONOCYTES % (AUTO) 9.3 % (3.0-13.0); NEUTROPHILS # (AUTO) 1.8 K/uL (1.8-7.7); PLATELET COUNT (AUTO) 162 K/uL (130-400); RED BLOOD CELL COUNT(AUTO) 4.14 MIL/uL (4.00-5.50); RED CELL DISTRIBUTION WIDTH 12.6 % (11.0-15.5)
[2025-01-08 03:49] LABS: CREATININE 0.8 mg/dL (0.5-1.0); POTASSIUM 4.9 mmol/L (3.5-5.1)
[2025-01-08 04:04] LABS: B-TYPE NATRIURETIC PEPTIDE 164 pg/mL (0-100)
[2025-01-08] MEDS: hydroMORPHone 0.5 MG SYG (0.5MG/0.5ML) IVP ONE ×2 (04:11→05:45)
[2025-01-08] MEDS: ondanSETRON 4MG INJ IVP ONE (04:12)
[2025-01-08] MEDS: HYOSCYAMINE SULFATE 0.125 MG TAB.SUBL SL ONE (04:12)
[2025-01-08] MEDS ORDERED: OMEP40CA21 PO (05:08)
[2025-01-08 06:00] VITALS: BP 149/73; PULSE 54; RESP 16; O2SAT 96
--- NOTE | 2025-01-08 08:23 | HMCIMG ---
PORTABLE CHEST RADIOGRAPH INDICATION: CHEST PAIN COMPARISON: 07/01/2024 FINDINGS: questioned documents examiner leads overlie the field of view. Heart is slightly enlarged. Mild calcific plaque is present along the aortic arch mohan. The pulmonary vascularity and mary appear normal. No abnormal pulmonary parenchymal opacity or consolidation identified. No significant pleural effusion noted. No pneumothorax detected. IMPRESSION: Mild cardiac enlargement without radiographic evidence for any acute cardiopulmonary process.
--- NOTE | 2025-01-08 17:49 | EKG ---
[facility] Test Date: 2025-01-08 Test Time: 03:28:46 Pat Name: ALBIN MEMBRENO Department: [facility] Room: Gender: F Advertising Sales Representative: [id number] : 1940 Requested By: SHAVON SGAE Order Number: [id number] Reading MD: Lam Weston Measurements Intervals Independence Rate: 57 P: -16 MA: 240 QRS: 3 QRSD: 95 T: 5 QT: 446 QTc: 437 Interpretive Statements Sinus rhythm Prolonged MA interval Borderline T abnormalities, diffuse leads Compared to ECG 07/01/2024 02:35:33 First degree AV block now present T-wave abnormality now present Atrial premature complex(es) no longer present Electronically Signed On 01-09-2025 09:55:06 RESOURCE PROGRAM TEACHER by Lam Weston Please click the below link to view image of tracing.
== END 2025-01-08 06:09 | disposition home or self-care (01) ==
LOC: EDH 03:22
DX: R07.89 Other chest pain (principal); K21.9 Gastro-esophageal reflux disease without esophagitis; K44.9 Diaphragmatic hernia without obstruction or gangrene; E03.9 Hypothyroidism, unspecified; E78.00 Pure hypercholesterolemia, unspecified; F17.200 Nicotine dependence, unspecified, uncomplicated; I10 Essential (primary) hypertension; Z79.1 Long term (current) use of non-steroidal anti-inflammatories (NSAID); Z79.899 Other long term (current) drug therapy; Z88.5 Allergy status to narcotic agent; Z90.49 Acquired absence of other specified parts of digestive tract; Z96.651 Presence of right artificial knee joint
CPT/HCPCS: 99285; 96374; 71045; 96375; 82550; 84484 ×2; 80048; 83880; 85025; 36415; 96376; 93005; J1171 ×2; J2405